=== PATIENT | female | born 1960 | race Native Hawaiian/Other Pacific Islander ===

== ENCOUNTER 2018-11-06 09:53 | Day surgery (SDC) | payer OTHER ==
[~2018-11-06] VITALS: Ht 162.6 cm; Wt 54.9 kg
== END 2018-11-06 11:40 | disposition home or self-care (01) ==
LOC: OR 09:53
PROC: 3E0T3TZ Introduction of Destructive Agent into Peripheral Nerves and Plexi, Percutaneous Approach (ICD-10-PCS; principal; 2018-11-06)
PROC: BR16YZZ Fluoroscopy of Lumbar Facet Joint(s) using Other Contrast (ICD-10-PCS; 2018-11-06)
DX: M47.816 Spondylosis without myelopathy or radiculopathy, lumbar region (principal)
CPT/HCPCS: J2001